=== PATIENT | male | born 1955 | race Caucasian/White ===

== ENCOUNTER 2022-08-17 19:11 | Emergency (ER) | payer OTHER ==
[2022-08-17 19:34] LABS: BASOPHILS # (AUTO) 0.1 10^3/uL (0.0-0.1); BASOPHILS % (AUTO) 1 % (0-10); EOSINOPHILS # (AUTO) 0.2 10^3/uL (0.0-0.3); EOSINOPHILS % (AUTO) 2 % (0-10); HEMATOCRIT 46 % (35-52); HEMOGLOBIN 14.9 g/dL (11.5-16.0); LYMPHOCYTES # (AUTO) 2.3 10^3/uL (1.0-4.0); LYMPHOCYTES % (AUTO) 25 % (12-44); MEAN CORPUSCULAR HEMOGLOBIN 29 pg (25-34); MEAN CORPUSCULAR HGB CONC 32 g/dL (32-36); MEAN CORPUSCULAR VOLUME 91 fL (80-99); MEAN PLATELET VOLUME 11.3 fL (9.0-12.2); MONOCYTES # (AUTO) 0.9 10^3/uL (0.0-1.0); MONOCYTES % (AUTO) 10 % (0-12); NEUTROPHILS % (AUTO) 63 % (42-75); PLATELET COUNT 251 10^3/uL (130-400); WHITE BLOOD COUNT 9.6 10^3/uL (4.3-11.0)
[2022-08-17 19:55] LABS: ALANINE AMINOTRANSFERASE 25 U/L (0-55); ALBUMIN 3.8 GM/DL (3.2-4.5); ALKALINE PHOSPHATASE 106 U/L (40-136); BILIRUBIN,TOTAL 0.7 MG/DL (0.1-1.0); BUN/CREATININE RATIO 14; CALCIUM 9.6 MG/DL (8.5-10.1); CARBON DIOXIDE 24 MMOL/L (21-32); CHLORIDE 108 MMOL/L (98-107); CREATININE SERUM 0.98 MG/DL (0.60-1.30); GFR ESTIMATED 91; GLUCOSE 156 MG/DL (70-105); POTASSIUM 3.7 MMOL/L (3.6-5.0); SODIUM 146 MMOL/L (135-145); TOTAL PROTEIN 7.1 GM/DL (6.4-8.2)
--- NOTE | 2022-08-17 19:56 | Diagnostic Imaging Report ---
PROCEDURE: CT head wo r/o stroke. TECHNIQUE: Multiple contiguous axial images were obtained through the brain without the use of intravenous contrast. Auto Exposure Controls were utilized during the CT exam to meet ALARA standards for radiation dose reduction. INDICATION: Facial drooping, numbness. COMPARISON: None available. FINDINGS: No intracranial hemorrhage. No intracranial mass, mass effect, midline shift, herniation, hydrocephalus, or extra-axial fluid collection. No CT evidence of an acute ischemic infarction. The orbits are unremarkable. The paranasal sinuses are clear. The calvarium and extracalvarial soft tissues are unremarkable. IMPRESSION: Unremarkable examination without acute intracranial abnormality. Should there remain high clinical concern for recent infarction, then further evaluation with MRI of the brain would be recommended. Dictated by: Dictated on workstation # [id number]
--- NOTE | 2022-08-17 19:58 | ED Neurological Problem ---
General Chief Complaint: Neuro-Stroke Like Symptoms Stated Complaint: STROKE SYMPTOMS Nursing Triage Note: Pt complaining of left arm and left facial numbness along with slurred speech that started around 1835 tonight. Source: patient, family Exam Limitations: no limitations History of Present Illness Date Seen by Provider: August 17, 2022 Time Seen by Provider: 19:13 Initial Comments 56-year-old male with past medical history of hypertension coming in due to concerns for stroke. At 6:30 PM his left face started drooping, left arm and face became numb, left arm became weak, and he started slurring his speech. He presented to the ER shortly after. He has had similar episodes over the past couple months, but always gets better within a few minutes. Last episode over a week ago. He has never had a stroke that he knows of, does not take blood thinners, no intracranial hemorrhage ever, no brain masses, no major surgery in the past 14 days, is not bleeding anywhere, and has never had any significant bleeding issues. He also has not hit his head at all recently. Allergies and Home Medications Allergies Coded Allergies: No Known Drug Allergies (Unverified , 08/17/22) Patient Home Medication List Home Medication List Reviewed: Yes Review of Systems Review of Systems Constitutional: No fever Eyes: No Symptoms Reported Respiratory: no symptoms reported Cardiovascular: no symptoms reported Gastrointestinal: no symptoms reported Genitourinary: no symptoms reported Musculoskeletal: no symptoms reported Psychiatric/Neurological: See HPI Past Pidzmuf-Yvwrfo-Fzcxov Hx Patient Social History Tobacco Use?: No Use of E-Cig and/or Vaping dev: No Substance use?: No Alcohol Use?: No Pt feels they are or have been: No Past Medical History Surgeries: Yes Orthopedic Physical Exam Vital Signs Vital Signs - First Documented 08/17/22 19:13 Temp 36.7 Pulse 124 Resp 16 B/P (MAP) 137/69 (91) Pulse Ox 95 O2 Delivery Room Air Capillary Refill : Less Than 3 Seconds Height, Weight, BMI Height: '" Weight: lbs. oz. kg; BMI Method: General Appearance: WD/WN, no apparent distress HEENT: PERRL/EOMI, pharynx normal Neck: non-tender, full range of motion, supple, normal inspection Respiratory: chest non-tender, lungs clear, normal breath sounds, no respiratory distress, no accessory muscle use Cardiovascular: regular rate, rhythm, no edema, no murmur Gastrointestinal: normal bowel sounds, non tender, soft; No distended, No guarding, No rebound Back: normal inspection, no CVA tenderness, no vertebral tenderness Extremities: non-tender, normal inspection, no pedal edema, no calf tenderness, normal capillary refill Neurologic/Psychiatric: alert, normal mood/affect, oriented x 3 Crainal Nerves: normal hearing, PERRL, abnormal speech, facial droop, facial paresthesias Coordination/Gait: normal gait; No ABN nose to finger (R); ABN nose to finger (L) Motor/Sensory: No pronator drift (R); pronator drift (L) Skin: normal color, warm/dry Stroke Onset of Symptoms Date of Onset of Symptoms: August 17, 2022 Time of Symptom Onset: 18:30 Onset of Symptoms: Yes NIH Stroke Scale Assessment Level of Consciousness: 0=Alert (0), Level of Consciousness-Questions: 0=Answers both month/age (0), LOC Commands: 0=Performs both tasks (0), Gaze: Normal (0), Visual Tyson: 0=No visual loss (0), Facial Movement (Facial Paresis): 2=Partial paralysis (2), Motor Function-Arms Right: 0=No drift (0), Motor Function-Arms Left: 1=Drift (1), Motor Function-Legs Right: 0=No drift (0), Motor Function-Legs Left: 0=No drift (0), Limb Ataxia: 1=Present in one limb (1), Sensory: 1=Mild to Moderate loss (1), Best Language: 0=No aphasia (0), Dysarthria: 1=Mild to moderate loss (1), Extinction & Inattention: 0=No abnormality (0), Total: 6 Stroke Thrombolytic Exclusion Age 18 or Over: Yes Acute intenal hemorrhage: No History of CVA: Yes Uncontrolled Coagulation Defec: No Intracranial Hemorrhage: No Severe Hypertension: No GI or Bleed: No Subarachnoid Hemorrhage: No Intracranial Neoplasm/Aneurysm: No Oral Anticoagulants: No Surgery or Trauma: No Puncture of Non-Compressible V: No Recent CPR: No Diabetic Hemorrhagic Retinopat: No Organ Biopsy: No Recent Obstetric Delivery: No Glucose: No Significant Hepatic Dysfunctio: No NIH Stoke Scale >22: No Bacterial Endocarditis: No Pericarditis: No Improving Symptoms: No Platelets: No TPA Contraindication: No Progress/Results/Core Measures Results/Orders Lab Results Laboratory Tests Test 08/17/22 19:20 08/17/22 19:30 08/17/22 20:06 Range/Units White Blood Count 9.6 4.3-11.0 10^3/uL Red Blood Count 5.08 3.80-5.11 10^6/uL Hemoglobin 14.9 11.5-16.0 g/dL Hematocrit 46 35-52 % Mean Corpuscular Volume 91 80-99 fL Mean Corpuscular Hemoglobin 29 25-34 pg Mean Corpuscular Hemoglobin Concent 32 32-36 g/dL Red Cell Distribution Width 12.7 10.0-14.5 % Platelet Count 251 130-400 10^3/uL Mean Platelet Volume 11.3 9.0-12.2 fL Immature Granulocyte % (Auto) 0 % Neutrophils (%) (Auto) 63 42-75 % Lymphocytes (%) (Auto) 25 12-44 % Monocytes (%) (Auto) 10 0-12 % Eosinophils (%) (Auto) 2 0-10 % Basophils (%) (Auto) 1 0-10 % Neutrophils # (Auto) 6.0 1.8-7.8 10^3/uL Lymphocytes # (Auto) 2.3 1.0-4.0 10^3/uL Monocytes # (Auto) 0.9 0.0-1.0 10^3/uL Eosinophils # (Auto) 0.2 0.0-0.3 10^3/uL Basophils # (Auto) 0.1 0.0-0.1 10^3/uL Immature Granulocyte # (Auto) 0.0 0.0-0.1 10^3/uL Prothrombin Time 14.1 12.2-14.7 SEC INR Comment 1.0 0.8-1.4 Activated Partial Thromboplast Time 28 24-35 SEC D-Dimer 1.71 H 0.00-0.49 UG/ML Sodium Level 146 H 135-145 MMOL/L Potassium Level 3.7 3.6-5.0 MMOL/L Chloride Level 108 H 98-107 MMOL/L Carbon Dioxide Level 24 21-32 MMOL/L Anion Gap 14 5-14 MMOL/L Blood Urea Nitrogen 14 7-18 MG/DL Creatinine 0.98 0.60-1.30 MG/DL Estimat Glomerular Filtration Rate 91 BUN/Creatinine Ratio 14 Glucose Level 156 H 70-105 MG/DL Calcium Level 9.6 8.5-10.1 MG/DL Corrected Calcium 9.8 8.5-10.1 MG/DL Total Bilirubin 0.7 0.1-1.0 MG/DL Aspartate Amino Transf (AST/SGOT) 26 5-34 U/L Alanine Aminotransferase (ALT/SGPT) 25 0-55 U/L Alkaline Phosphatase 106 40-136 U/L Troponin I < 0.30 <0.30 NG/ML Total Protein 7.1 6.4-8.2 GM/DL Albumin 3.8 3.2-4.5 GM/DL Glucometer 161 H 70-110 MG/DL Urine Color YELLOW Urine Clarity CLEAR Urine pH 6.0 5-9 Urine Specific [place] 1.010 L 1.016-1.022 Urine Protein NEGATIVE NEGATIVE Urine Glucose (UA) NEGATIVE NEGATIVE Urine Ketones NEGATIVE NEGATIVE Urine Nitrite POSITIVE H NEGATIVE Urine Bilirubin NEGATIVE NEGATIVE Urine Urobilinogen 0.2 < = 1.0 MG/DL Urine Leukocyte Esterase TRACE H NEGATIVE Urine RBC (Auto) NEGATIVE NEGATIVE Urine RBC NONE /HPF Urine WBC 10-25 H /HPF Urine Squamous Epithelial Cells 2-5 /HPF Urine Crystals NONE /LPF Urine Bacteria MODERATE H /HPF Urine Casts NONE /LPF Urine Mucus SMALL H /LPF Urine Culture Indicated YES My Orders Orders - SARMAD BARROS MD Ct Head Wo-R/O Stroke (08/17/22 19:20) Cbc With Automated Diff (08/17/22 19:) Protime With Inr (08/17/22 19:27) Partial Thromboplastin Time (08/17/22 19:27) Comprehensive Metabolic Panel (08/17/22 19:27) Fibrin Degradation Products (08/17/22 19:27) Troponin I Fs (08/17/22 19:27) Ua Culture If Indicated (08/17/22 19:27) Chest 1 View Ap/Pa Only (08/17/22 19:27) Catheter(Urinary) Insert & Ass 03,15 (08/17/22 19:27) Ekg Tracing (08/17/22 19:27) Accucheck Stat ONCE (08/17/22 19:27) Ed Iv/Invasive Line Start (08/17/22 19:27) Ed Iv/Invasive Line Start (08/17/22 19:27) Vital Signs Stroke Patient Q15M (08/17/22 19:27) O2 (08/17/22 19:27) Intake & Output 06,14,22 (08/17/22 19:27) Monitor-Rhythm Ecg Trace Only (08/17/22 19:27) Dysphagia Screening Tool Q10MX1 (08/17/22 19:27) Post Thrombolytic Adminstratio (08/17/22 19:27) Ct Angio Head/Neck (08/17/22 19:27) Iohexol Injection (Omnipaque 350 Mg/Ml 1 (08/17/22 20:00) Received Contrast (Hold Metformin- Contr (08/17/22 20:00) Ns (Ivpb) (Sodium Chloride 0.9% Ivpb Bag (08/17/22 20:00) Vital Signs Stroke Patient Q15M (08/17/22 20:10) Monitor-Rhythm Ecg Trace Only (08/17/22 20:10) Dysphagia Screening Tool Q10MX1 (08/17/22 20:10) Tenecteplase (Tnkase) (08/17/22 20:15) Post Thrombolytic Adminstratio (08/17/22 20:10) Urine Culture (08/17/22 20:06) Medications Given in ED Current Medications Medications Dose Ordered Sig/Ashley Route Start Time Stop Time Status Last Admin Dose Admin Iohexol 70 ml ONCE ONCE IV 08/17/22 20:00 08/17/22 20:01 DC 08/17/22 20:10 70 ML Sodium Chloride 100 ml ONCE ONCE IV 08/17/22 20:00 08/17/22 20:01 DC 08/17/22 20:10 100 ML Tenecteplase 25 mg ONCE ONCE IV 08/17/22 20:15 08/17/22 20:16 DC 08/17/22 20:21 25 MG Vital Signs/I&O 08/17/22 08/17/22 08/17/22 08/17/22 19:13 20:21 20:25 20:51 Temp 36.7 Pulse 124 104 102 100 Resp 16 18 20 B/P (MAP) 137/69 (91) 142/76 142/76 135/72 Pulse Ox 95 94 96 O2 Delivery Room Air Room Air Blood Pressure Mean: 91 FSBG Bedside Testing Finger Stick Blood Glucose: 161 Progress Progress Note : Progress Note 56-year-old male with above history coming in due to strokelike symptoms. ABCs were intact and vitals were stable on presentation. Physical exam with left arm weakness, left arm and face numbness, left-sided facial droop, ataxia with his left upper extremity, and slurring of speech. NIH is 6. It does sound like he has had multiple TIAs over the past couple months. The patient was taken immediately to the CT scanner and on my interpretation has no obvious intracranial hemorrhage. CTA head and neck also obtained which were negative. Glucose around 160, normal creatinine, unremarkable CBC, negative troponin. EKG with no acute ischemic changes and he is in sinus rhythm. I contacted Dr. Voss, [facility] stroke neurologist. She recommended giving tenecteplase. I did consent the patient and discussed with him the risk and benefits of this. He opted to go forward with the treatment. then will accept him for transport to their intensive care unit. Initial ECG Impression Date: August 17, 2022 Initial ECG Impression Time: 19:45 Initial ECG Rate: 103 Initial ECG Rhythm: S.Tach Comment Narrow QRS, normal axis, no significant ST changes or T wave abnormalities Diagnostic Imaging Diagonstic Imaging: Xray (chest), CT (CTA head and neck) Comments [facility]. [place], [place] NAME: GISELLE GUERRA [facility] REC#: [id number] PT STATUS: REG ER : 10/26/1965 PHYSICIAN: SARMAD BARROS MD ADMIT DATE: 08/17/22/ER FS Signed Date of Exam:08/17/22 CT ANGIO HEAD/NECK PROCEDURE: CT angiography of the head and CT angiography of the neck with and without contrast. TECHNIQUE: Contiguous noncontrast images were obtained from the skull base through the vertex. After intravenous contrast administration, helical CT angiography of the neck was performed. Source data was reformatted into 3D MIP projections. Delayed post contrast acquisition was also obtained. Auto Exposure Controls were utilized during the CT exam to meet ALARA standards for radiation dose reduction. INDICATION: Stroke, left-sided facial numbness, slurred speech COMPARISON: Imaging from the same date FINDINGS: No midline shift, obstructive hydrocephalus, uncal herniation, or significant extra-axial fluid collection. No enhancing intracranial mass lesion. No suspicious dural enhancement. The orbits are unremarkable. The muscles of mastication are unremarkable. The parapharyngeal fat is symmetric and well-maintained. The salivary glands are unremarkable. The thyroid gland is unremarkable. No significant adenopathy within the neck. No apical pneumothorax. A three-vessel aortic arch is present. 50% stenosis is noted involving the right carotid bulb/proximal right internal carotid artery based upon NASCET criteria. The distal right internal carotid artery is tortuous. Approximately 50% stenosis involving the left carotid bulb/proximal internal carotid artery is identified. The large arterial structures within the head and neck are otherwise unremarkable. The large dural venous sinuses are patent. Postsurgical changes are noted within the cervical spine with anterior plate and screw fixation of C4-C7. Significant scattered degenerative changes are identified within the cervical spine. IMPRESSION: Approximately 50% stenosis involving the bilateral carotid bulb/proximal internal carotid arteries based upon NASCET criteria. No acute intracranial abnormality. Postsurgical and degenerative changes within the spine. Dictated by: Dictated on workstation # [id number] Dict: 08/17/221954 Trans: 08/17/222024 [place] [id number] Interpreted by: ISAEL MERCHANT MD Electronically signed by: ISAEL MERCHANT MD 08/17/222024 [facility] [place], [place] NAME: GISELLE GUERRA [facility] REC#: [id number] PT STATUS: REG ER : 10/26/1965 PHYSICIAN: SARMAD BARROS MD ADMIT DATE: 08/17/22/ER FS Draft Date of Exam:08/17/22 CHEST 1 VIEW AP/PA ONLY EXAMINATION: Chest 1 view HISTORY: stroke COMPARISON: None available. FINDINGS: Heart size and pulmonary vasculature are normal. The lungs are clear without consolidation, pleural effusion, or pneumothorax. Degenerative changes of the thoracic spine. Osseous structures are otherwise intact. IMPRESSION: 1. No acute radiographic abnormality in the chest. Dictated on workstation # [id number] Dict: 08/17/221955 Trans: 08/17/222006 [place] [id number] Interpreted by: RAKESH KOHLI DO Electronically signed by: Critical Care Note Critical Care Start Time: 19:13 Stop Time: 20:58 Total Time (minutes) 37 Progress The patient had acute ischemic stroke requiring tenecteplase. He was at significant risk for bleeding. Patient was transferred to another facility to the intensive care unit. All time billed for critical care was separate from procedures. Departure Impression Primary Impression: Acute stroke due to ischemia Disposition: XFER SHT-TRM HOSP Condition: Stable Admissions Decision to Admit/Date: August 17, 2022 Time/Decision to Admit Time: 19:55 Transfer Transfer Reason: Exceeds level of care (may need thrombectomy) Time Spoke to Accepting Phy: 20:00 Transfer Progress Notes Accepted by stroke neurologist at [facility]. Current ambulance is out of [facility] and will not have ground transport for many hours. Patient needs to be in an ICU sooner, so will fly via helicopter due to necessity Transfer Facility: [facility] Method of Transfer: SARMAD Solis MD August 17, 2022 19:57
[2022-08-17] MEDS ORDERED: NS 100 ML (IVPB) BAG IV ONE (20:00)
[2022-08-17] MEDS ORDERED: HOLD METFORMIN - RECEIVED CONTRAST 20 ML VIAL IV SCH (20:00)
[2022-08-17] MEDS ORDERED: IOHEXOL 350 MG/ML 100 ML (OMNIPAQUE 350) VIAL IV ONE (20:00)
--- NOTE | 2022-08-17 20:07 | Diagnostic Imaging Report ---
EXAMINATION: Chest 1 view HISTORY: stroke COMPARISON: None available. FINDINGS: Heart size and pulmonary vasculature are normal. The lungs are clear without consolidation, pleural effusion, or pneumothorax. Degenerative changes of the thoracic spine. Osseous structures are otherwise intact. IMPRESSION: 1. No acute radiographic abnormality in the chest. Dictated by: Dictated on workstation # [id number]
[2022-08-17 20:11] LABS: BILIRUBIN,URINE NEGATIVE (NEGATIVE); CLARITY,URINE CLEAR; COLOR,URINE YELLOW; GLUCOSE, URINE (UA) NEGATIVE (NEGATIVE); KETONES,URINE NEGATIVE (NEGATIVE); LEUKOCYTE ESTERASE ,URINE TRACE (NEGATIVE); NITRITE,URINE POSITIVE (NEGATIVE); PROTEIN,URINE NEGATIVE (NEGATIVE)
--- NOTE | 2022-08-17 20:13 | Diagnostic Imaging Report ---
PROCEDURE: CT angiography of the head and CT angiography of the neck with and without contrast. TECHNIQUE: Contiguous noncontrast images were obtained from the skull base through the vertex. After intravenous contrast administration, helical CT angiography of the neck was performed. Source data was reformatted into 3D MIP projections. Delayed post contrast acquisition was also obtained. Auto Exposure Controls were utilized during the CT exam to meet ALARA standards for radiation dose reduction. INDICATION: Stroke, left-sided facial numbness, slurred speech COMPARISON: Imaging from the same date FINDINGS: No midline shift, obstructive hydrocephalus, uncal herniation, or significant extra-axial fluid collection. No enhancing intracranial mass lesion. No suspicious dural enhancement. The orbits are unremarkable. The muscles of mastication are unremarkable. The parapharyngeal fat is symmetric and well-maintained. The salivary glands are unremarkable. The thyroid gland is unremarkable. No significant adenopathy within the neck. No apical pneumothorax. A three-vessel aortic arch is present. 50% stenosis is noted involving the right carotid bulb/proximal right internal carotid artery based upon NASCET criteria. The distal right internal carotid artery is tortuous. Approximately 50% stenosis involving the left carotid bulb/proximal internal carotid artery is identified. The large arterial structures within the head and neck are otherwise unremarkable. The large dural venous sinuses are patent. Postsurgical changes are noted within the cervical spine with anterior plate and screw fixation of C4-C7. Significant scattered degenerative changes are identified within the cervical spine. IMPRESSION: Approximately 50% stenosis involving the bilateral carotid bulb/proximal internal carotid arteries based upon NASCET criteria. No acute intracranial abnormality. Postsurgical and degenerative changes within the spine. Dictated by: Dictated on workstation # [id number]
[2022-08-17] MEDS ORDERED: TENECTEPLASE 50 MG VIAL IV ONE (20:15)
[2022-08-17 20:17] LABS: FIBRIN DEGRADATION PRODUCTS 1.71 UG/ML (0.00-0.49); PROTHROMBIN TIME PATIENT 14.1 SEC (12.2-14.7)
[2022-08-17 20:18] LABS: BACTERIA,URINE MODERATE /HPF
[2022-08-17 20:25] VITALS: BP 142/76
[2022-08-17 20:51] VITALS: BP 135/72
== END 2022-08-17 21:05 | disposition short-term general hospital (02) ==
LOC: ER FS 19:13 → EDBD 19:13 → EDSEX 19:13 → ER FS 21:05
DX: I63.9 Cerebral infarction, unspecified (principal); G81.94 Hemiplegia, unspecified affecting left nondominant side; R29.810 Facial weakness; R47.81 Slurred speech; R27.0 Ataxia, unspecified; R29.706 NIHSS score 6; Z28.310 Unvaccinated for COVID-19
CPT/HCPCS: 36415; 70450; 70496; 70498; 71045; 80053; 81000; 82947; 84484; 85025; 85379; 85610; 85730; 87088; 92977; 93005; 93041; 99291; Q9967

== ENCOUNTER 2022-11-10 08:21 | Emergency (ER) | payer OTHER ==
[~2022-11-10] VITALS: Ht 187 cm; Wt 132.0 kg
--- NOTE | 2022-11-10 09:00 | ED Neurological Problem ---
General Chief Complaint: General Problems/Pain Stated Complaint: LT ARM NUMBNESS; BLURRY VISION Nursing Triage Note: Patient has presented to ER with a few complaints. He reports that after he got to work this morning he noticed this numbness feeling in his left shoulder with some extension into her left arm. It seems to work fine but feels a bit numb. He reports that the more he thought about it the more he worried about it, since he has a stroke in the past. While at work he noticed that he feels a little shakey, and he some pain in his lower left chest - along the lower left rib area - that pain has gone a way upon arrival to the ER. He felt that he should come in and be checked out. Source: patient, old records Exam Limitations: no limitations History of Present Illness Date Seen by Provider: Nov 10, 2022 Time Seen by Provider: 08:33 Initial Comments This 67-year-old gentleman with prior history of CVA presents to the emergency room via private vehicle with complaints of minor numbness in his left fourth and fifth finger, a brief episode of disruption in the left peripheral vision, a "dumbness" in the musculature of the left upper arm, and a brief vague discomfort in his left chest. He felt well when he awoke around 0500. He then noted the symptoms approximately 0715. Symptoms resolved by the time he presented to the emergency room. He also reports feeling generally shaky and a bit dysphoric. He describes no facial drooping, extremity weakness, or speech problems. He had a stroke in July of this year. He was experiencing left-sided deficits and presented to this emergency room. His NIH score was 6. He received tenecteplase and was transferred to [facility] where he had a thorough evaluation including MRI studies and a cardiac evaluation. He reports no definite cause for the stroke was determined and cardiac work-up was unremarkable. He presently takes aspirin after completing 3 weeks of dual antiplatelet therapy with Plavix. He also takes atorvastatin but reports it causes him problems with muscle aching. He reports that these symptoms can be convoluted due to his history of cervical spine disease with history of corpectomy. He also has chronic problems with the left shoulder due to a prior shoulder injury. The shoulder sometimes feels loose and sore. He has chronic residual deficits from his prior stroke that include a slight numbness of the left upper lip and the left tongue. He recently mowed a large section of grass that caused some upper back pain which she is still experiencing. He has lumbar spondylolisthesis which causes neuropathy. He has also been treated for UTI in recent months. He reports history of prediabetes and wonders about his blood suger. His primary care provider is Dr. Jay. His pharmacy is [facility] in [place]. Review of his chart reveals CTA performed at the time of his prior stroke presentation August 17, 2022 with approximately 50% stenosis of the internal carotids bilaterally. He reports loop recorder was previously recommended. He is considering pursuing the loop recorder. Allergies and Home Medications Allergies Coded Allergies: No Known Drug Allergies (Unverified , 08/17/22) Patient Home Medication List Home Medication List Reviewed: Yes Review of Systems Review of Systems Constitutional: see HPI Eyes: See HPI Ears, Nose, Mouth, Throat: no symptoms reported Respiratory: no symptoms reported Cardiovascular: no symptoms reported Gastrointestinal: no symptoms reported Genitourinary: no symptoms reported Musculoskeletal: no symptoms reported Skin: no symptoms reported Psychiatric/Neurological: See HPI Endocrine: See HPI Hematologic/Lymphatic: No Symptoms Reported Past Mubzarn-Bxbrks-Geqnwq Hx Patient Social History Tobacco Use?: No Use of E-Cig and/or Vaping dev: No Substance use?: No Alcohol Use?: No Past Medical History Surgeries: Yes Gallbladder, Orthopedic (c-spin corpectomy, right rotator cuff) Respiratory: No Cardiac: Yes Hypertension, Peripheral Vascular (bilateral carotid stenosis) Neurological: Yes Neuropathy, Stroke Genitourinary: No Gastrointestinal: No Musculoskeletal: Yes (lumbar spondylolisthesis, cervical spine disease, chronic left knee pain) Chronic Back Pain, Gout Endocrine: Yes (prediabetes) HEENT: No Cancer: No Psychosocial: No Physical Exam Vital Signs Vital Signs - First Documented 11/10/22 08:36 Temp 36.8 Pulse 87 Resp 16 B/P (MAP) 151/87 (108) Pulse Ox 96 O2 Delivery Room Air Capillary Refill : Height, Weight, BMI Height: '" Weight: lbs. oz. kg; 37.00 BMI Method: General Appearance: WD/WN, no apparent distress HEENT: PERRL/EOMI, normal ENT inspection, pharynx normal Neck: normal inspection Respiratory: lungs clear, normal breath sounds, no respiratory distress Cardiovascular: regular rate, rhythm, no edema, no murmur Gastrointestinal: non tender, soft Extremities: normal inspection, no pedal edema Neurologic/Psychiatric: toggle press folder and feeder II-XII nml as tested (slight chronic numbness of left lip and tongue at baseline), no motor/sensory deficits, alert, normal mood/affect, oriented x 3 Crainal Nerves: normal hearing, normal speech, PERRL Coordination/Gait: normal finger to nose (normal heel to wayne) Motor/Sensory: no motor deficit, no sensory deficit (baseline lip and tongue numbess) Skin: normal color, warm/dry Stroke Stroke Thrombolytic Exclusion Age 18 or Over: Yes Acute intenal hemorrhage: No History of CVA: Yes Uncontrolled Coagulation Defec: No Intracranial Hemorrhage: No Severe Hypertension: No GI or Bleed: No Subarachnoid Hemorrhage: No Intracranial Neoplasm/Aneurysm: No Oral Anticoagulants: No Surgery or Trauma: No Puncture of Non-Compressible V: No Recent CPR: No Diabetic Hemorrhagic Retinopat: No Organ Biopsy: No Recent Obstetric Delivery: No Glucose: No Significant Hepatic Dysfunctio: No NIH Stoke Scale >22: No Bacterial Endocarditis: No Pericarditis: No Improving Symptoms: No Platelets: No Progress/Results/Core Measures Results/Orders Lab Results Laboratory Tests Test 11/10/22 08:30 11/10/22 09:03 11/10/22 11:30 Range/Units White Blood Count 7.0 4.3-11.0 10^3/uL Red Blood Count 5.24 4.30-5.52 10^6/uL Hemoglobin 15.1 13.3-17.7 g/dL Hematocrit 47 40-54 % Mean Corpuscular Volume 91 80-99 fL Mean Corpuscular Hemoglobin 29 25-34 pg Mean Corpuscular Hemoglobin Concent 32 32-36 g/dL Red Cell Distribution Width 13.0 10.0-14.5 % Platelet Count 231 130-400 10^3/uL Mean Platelet Volume 11.5 9.0-12.2 fL Immature Granulocyte % (Auto) 0 % Neutrophils (%) (Auto) 60 42-75 % Lymphocytes (%) (Auto) 24 12-44 % Monocytes (%) (Auto) 11 0-12 % Eosinophils (%) (Auto) 4 0-10 % Basophils (%) (Auto) 1 0-10 % Neutrophils # (Auto) 4.2 1.8-7.8 X 10^3 Lymphocytes # (Auto) 1.7 1.0-4.0 X 10^3 Monocytes # (Auto) 0.8 0.0-1.0 X 10^3 Eosinophils # (Auto) 0.3 0.0-0.3 10^3/uL Basophils # (Auto) 0.0 0.0-0.1 10^3/uL Immature Granulocyte # (Auto) 0.0 0.0-0.1 10^3/uL Sodium Level 143 135-145 MMOL/L Potassium Level 3.5 L 3.6-5.0 MMOL/L Chloride Level 104 98-107 MMOL/L Carbon Dioxide Level 27 21-32 MMOL/L Anion Gap 12 5-14 MMOL/L Blood Urea Nitrogen 14 7-18 MG/DL Creatinine 0.95 0.60-1.30 MG/DL Estimat Glomerular Filtration Rate 88 BUN/Creatinine Ratio 15 Glucose Level 172 H 70-105 MG/DL Calcium Level 9.5 8.5-10.1 MG/DL Corrected Calcium 9.6 8.5-10.1 MG/DL Magnesium Level 2.0 1.6-2.4 MG/DL Total Bilirubin 0.7 0.1-1.0 MG/DL Aspartate Amino Transf (AST/SGOT) 24 5-34 U/L Alanine Aminotransferase (ALT/SGPT) 25 0-55 U/L Alkaline Phosphatase 138 H 40-136 U/L Troponin I < 0.30 <0.30 NG/ML Total Protein 7.0 6.4-8.2 GM/DL Albumin 3.9 3.2-4.5 GM/DL Urine Color YELLOW Urine Clarity CLEAR Urine pH 6.0 5-9 Urine Specific Thurmond 1.025 H 1.016-1.022 Urine Protein NEGATIVE NEGATIVE Urine Glucose (UA) NEGATIVE NEGATIVE Urine Ketones NEGATIVE NEGATIVE Urine Nitrite NEGATIVE NEGATIVE Urine Bilirubin NEGATIVE NEGATIVE Urine Urobilinogen 0.2 < = 1.0 MG/DL Urine Leukocyte Esterase NEGATIVE NEGATIVE Urine RBC (Auto) NEGATIVE NEGATIVE Urine RBC NONE /HPF Urine WBC NONE /HPF Urine Squamous Epithelial Cells 5-10 /HPF Urine Crystals NONE /LPF Urine Bacteria NEGATIVE /HPF Urine Casts NONE /LPF Urine Mucus SMALL H /LPF Urine Culture Indicated NO My Orders Orders - RACHEL LOO MD Cbc With Automated Diff (11/10/22 08:56) Comprehensive Metabolic Panel (11/10/22 08:56) Magnesium (11/10/22 08:56) Ua Culture If Indicated (11/10/22 08:56) Troponin I Fs (11/10/22 08:56) Ekg Tracing (11/10/22 08:56) Monitor-Rhythm Ecg Trace Only (11/10/22 08:56) Creatine Kinase (11/10/22 09:00) Iohexol Injection (Omnipaque 350 Mg/Ml 1 (11/10/22 09:45) Received Contrast (Hold Metformin- Contr (11/10/22 09:45) Ns (Ivpb) 100 Ml (Sodium Chloride 0.9% 1 (11/10/22 09:45) Ct Head/Cervical Spine Wo (11/10/22 09:33) Troponin I Fs (11/10/22 11:30) Clopidogrel Tablet (Clopidogrel Tablet) (11/10/22 11:30) Clopidogrel Tablet (Clopidogrel Tablet) (11/10/22 11:24) Medications Given in ED Current Medications Medications Dose Ordered Sig/Ashley Route Start Time Stop Time Status Last Admin Dose Admin Clopidogrel Bisulfate 300 mg ONCE ONCE PO 11/10/22 11:30 11/10/22 11:31 DC 11/10/22 11:30 300 MG Vital Signs/I&O 11/10/22 11/10/22 11/10/22 08:36 09:48 11:22 Temp 36.8 Pulse 87 69 69 Resp 16 14 16 B/P (MAP) 151/87 (108) 159/86 (110) 175/86 Pulse Ox 96 97 97 O2 Delivery Room Air Room Air Room Air Blood Pressure Mean: 108 Progress Progress Note : Time: 11:29 Progress Note Patient was interviewed and examined at 0833. His symptoms of concern including chest discomfort, left peripheral visual disturbance, numbness in the left fourth and fifth finger, and the "dumbness" of the posterior left upper arm had all resolved by the time of my interview and exam. No focal neurologic deficits were identified on exam. Work-up was pursued including CBC, CMP, magnesium, troponin, urinalysis, EKG, and CT imaging of the head and cervical spine. All studies were viewed, reviewed, and interpreted by me as unremarkable except the CT imaging. On my interpretation of CT imaging there were no acute abnormalities of the head. Cervical spine demonstrated significant chronic disease and postoperative changes. Chronic disease included cervical spinal stenosis and multiple levels of neuroforaminal stenosis as well as bone spurring. Radiologist's report was also reviewed and noted as below. Also included below is the CT angiogram from July which was reviewed by me. Although patient's symptoms in the left upper extremity could be explained by his cer vical spine disease, I do have concerns about the visual disturbance he had that accompanied those symptoms. I discussed this issue with Dr. King, stroke neurologist at [facility]. She reviewed his [facility] file. We discussed the carotid stenosis noted on the angiogram from July. In light of the carotid stenosis, his waxing and waning intermittent symptoms, and the eye symptoms that would not be explained by cervical spine disease, she discerned it would be best to repeat imaging of the vasculature with CT angiogram as well as MRI. MRI is not available at this stand-alone ER. We discussed the option of transferring to [place] for imaging versus directly transferring to [facility]. Although [place] is closer, there would be risk of delaying treatment if he then required transfer to a comprehensive stroke center after review of imaging studies. Also, it would be best for him to be evaluated directly by stroke neurologist and have his imaging performed with the best possible equipment and assessed by neuroradiologist and stroke neurologist. Ultimately, it was determined it is most appropriate for him to be transferred directly to [facility] to provide the best evaluation for his circumstances and to prevent delay of care. Patient is agreeable to transfer. He will be transferred by [facility]. Patient's chest pain is being further evaluated by a repeat troponin. Patient states he has not had any stress testing or coronary angiography in the past which prompted the repeat troponin. Both the repeat troponin and the CK ordered to evaluate possible myopathy related to atorvastatin were pending at this time. The CK is a send out lab and will not be available during this ER stay. Patient is stable at this time. He has been noted to be hypertensive with a current blo od pressure of 164/83. This hypertension would add to the concern that he may have experienced a TIA today. Per Dr. King's recommendation, Plavix 300 mg is being added to his treatment today. Dysphagia screening with water swallow was performed prior to receiving the Plavix. Dr. King recommended deferring further imaging to [facility]. Necessity for transfer to [facility] is based on his need for evaluation at a comprehensive stroke center and need for continuity of care. Patient was treated for his stroke at [facility] in July. There is no metropolitan area closer with a comprehensive stroke center which makes [facility] the most appropriate receiving facility. Patient was not a thrombolytic candidate at the time of his ER stay as there were no measurable focal neurologic deficits. Initial ECG Impression Date: Nov 10, 2022 Initial ECG Impression Time: 08:26 Initial ECG Rate: 92 Initial ECG Rhythm: Normal Sinus Comment Sinus rhythm with no ST elevation or depression. First-degree block with IN interval of 214 ms. No axis deviation. Diagnostic Imaging Diagonstic Imaging: CT Plain Films/CT/US/NM/MRI: c-spine, head Comments NAME: GISELLE GUERRA [facility] REC#: [id number] PT STATUS: REG ER : 1955 PHYSICIAN: RACHEL LOO MD ADMIT DATE: 11/10/22/ER FS Draft Date of Exam:11/10/22 CT HEAD/CERVICAL SPINE WO Clinical indications: Patient has numbness feeling involving the left shoulder with some extension the left forearm. Patient's history of stroke. EXAM: Exam: Head CT without IV contrast with sagittal and coronal reformations. Axial CT scan of the cervical spine with sagittal and coronal reformations. Auto Exposure Controls were utilized during the CT exam to meet ALARA standards for radiation dose reduction. Comparison: CT angiogram of head/neck dated 08/17/2022. Findings: Head CT: There is no evidence of acute cerebral infarct, intracranial hemorrhage, or gross mass effect. The brain parenchymal volume appears appropriate for patient's age. There is normal bonilla-white matter distinction. There is no significant midline shift or herniation. There is no evidence of hydrocephalus. The basal cisterns are unremarkable. The skull, extracranial soft tissue, and orbits are unremarkable. The paranasal sinuses are unremarkable. Temporal bones show no significant abnormality. Cervical spine: There is no acute cervical spine fracture or dislocation. Straightening of the cervical spine posture C4 through C7 anterior cervical discectomy fusion. There is solid bony bridging/fusion seen from the C4-C6 level. There is no significant bony bridging/fusion seen at C6-C7 level and may be related to pseudoarthrosis. There is no hardware fracture. There is no osteolysis. There are cervical spine vertebral body spurs and facet arthropathy. C1-C2: There are hypertrophic spurs involving the left odontoid interval anteriorly. There is no significant central canal narrowing. C2-C3: There is grade 1 anterolisthesis C2 on C3. There is left-sided uncinate spur and bilateral facet arthropathy. There is moderate left neural foramen narrowing and mild right neural foramen narrowing. There is no significant bony central canal narrowing. C3-C4: There is moderate left facet arthropathy/hypertrophy and mild right facet arthropathy. There is moderate left neural foramen narrowing and no significant right neural foramen narrowing. There is no significant central canal stenosis. C4-C5: There is left paracentral vertebral body bony prominence which causes mild central canal narrowing. There is moderate right neural foramen narrowing and no significant left neural foramen narrowing. C5-C6: There is mild bilateral neural foramen narrowing due to uncinate spurs. There is no significant bony central canal narrowing. C6-C7: There are bilateral uncinate spurs and posterior vertebral body spurs. There is at least mild bony central canal narrowing. There is moderate left neural foramen narrowing and severe right neural foramen narrowing. There is at least mild to moderate central canal narrowing. C7-T1: There is no significant bony central canal or neural foramen narrowing. IMPRESSION: 1: There is no acute cervical spine fracture or dislocation. 2: There is C4-C7 ACDF. There is no significant bony bridging/fusion seen at C6-C7 level this may be related to pseudoarthrosis. 3: There is cervical spine degenerative disease, as described above. Dictated on workstation # [id number] Dict: 11/10/22 0953 Trans: 11/10/22 1029 [facility] [employer] [facility] [id number] Interpreted by: MERCEDES CORDOBA MD Diagonstic Imaging: CT Plain Films/CT/US/NM/MRI: other (CT angiogram head and neck from August 17, 2022) Comments NAME: GISELLE GUERRA [facility] REC#: [id number] PT STATUS: REG ER : 10/26/1965 PHYSICIAN: SARMAD BARROS MD ADMIT DATE: 08/17/22/ER FS Signed Date of Exam:08/17/22 CT ANGIO HEAD/NECK PROCEDURE: CT angiography of the head and CT angiography of the neck with and without contrast. TECHNIQUE: Contiguous noncontrast images were obtained from the skull base through the vertex. After intravenous contrast administration, helical CT angiography of the neck was performed. Source data was reformatted into 3D MIP projections. Delayed post contrast acquisition was also obtained. Auto Exposure Controls were utilized during the CT exam to meet ALARA standards for radiation dose reduction. INDICATION: Stroke, left-sided facial numbness, slurred speech COMPARISON: Imaging from the same date FINDINGS: No midline shift, obstructive hydrocephalus, uncal herniation, or significant extra-axial fluid collection. No enhancing intracranial mass lesion. No suspicious dural enhancement. The orbits are unremarkable. The muscles of mastication are unremarkable. The parapharyngeal fat is symmetric and well-maintained. The salivary glands are unremarkable. The thyroid gland is unremarkable. No significant adenopathy within the neck. No apical pneumothorax. A three-vessel aortic arch is present. 50% stenosis is noted involving the right carotid bulb/proximal right internal carotid artery based upon NASCET criteria. The distal right internal carotid artery is tortuous. Approximately 50% stenosis involving the left carotid bulb/proximal internal carotid artery is identified. The large arterial structures within the head and neck are otherwise unremarkable. The large dural venous sinuses are patent. Postsurgical changes are noted within the cervical spine with anterior plate and screw fixation of C4-C7. Significant scattered degenerative changes are identified within the cervical spine. IMPRESSION: Approximately 50% stenosis involving the bilateral carotid bulb/proximal internal carotid arteries based upon NASCET criteria. No acute intracranial abnormality. Postsurgical and degenerative changes within the spine. Dictated by: Dictated on workstation # [id number] Dict: 08/17/221954 Trans: 08/17/222024 [facility] [id number] Interpreted by: ISAEL MERCHANT MD Electronically signed by: ISAEL MERCHANT MD 08/17/222024 Departure Impression Primary Impression: Left upper extremity numbness Additional Impressions: Visual disturbance History of CVA (cerebrovascular accident) Bilateral carotid artery stenosis Cervical spinal stenosis Neuroforaminal stenosis of cervical spine Disposition: XF [facility]-TRM HOSP Condition: Stable Transfer Transfer Reason: Exceeds level of care Time Spoke to Accepting Phy: 11:[address] King, stroke neurologist at [facility] Transfer Facility: [facility] Method of Transfer: EMS Departure-Patient Inst. Referrals: GERARDO JAY MD (PCP/Family) Primary Care Physician Copy Copies To 1: SELF,RACHEL TRAN MD, MD Nov 10, 2022 08:59
[2022-11-10 09:19] LABS: BACTERIA,URINE NEGATIVE /HPF; BILIRUBIN,URINE NEGATIVE (NEGATIVE); CLARITY,URINE CLEAR; COLOR,URINE YELLOW; GLUCOSE, URINE (UA) NEGATIVE (NEGATIVE); KETONES,URINE NEGATIVE (NEGATIVE); LEUKOCYTE ESTERASE ,URINE NEGATIVE (NEGATIVE); NITRITE,URINE NEGATIVE (NEGATIVE); PROTEIN,URINE NEGATIVE (NEGATIVE)
[2022-11-10 09:20] LABS: HEMATOCRIT 47 % (40-54); HEMOGLOBIN 15.1 g/dL (13.3-17.7); MEAN CORPUSCULAR HEMOGLOBIN 29 pg (25-34); MEAN CORPUSCULAR HGB CONC 32 g/dL (32-36); MEAN CORPUSCULAR VOLUME 91 fL (80-99)
[2022-11-10 09:21] LABS: BASOPHILS % (AUTO) 1 % (0-10); EOSINOPHILS # (AUTO) 0.3 10^3/uL (0.0-0.3); EOSINOPHILS % (AUTO) 4 % (0-10); LYMPHOCYTES # (AUTO) 1.7 X 10^3 (1.0-4.0); LYMPHOCYTES % (AUTO) 24 % (12-44); MEAN PLATELET VOLUME 11.5 fL (9.0-12.2); MONOCYTES # (AUTO) 0.8 X 10^3 (0.0-1.0); MONOCYTES % (AUTO) 11 % (0-12); NEUTROPHILS # (AUTO) 4.2 X 10^3 (1.8-7.8); NEUTROPHILS % (AUTO) 60 % (42-75); PLATELET COUNT 231 10^3/uL (130-400)
[2022-11-10 09:23] LABS: ALANINE AMINOTRANSFERASE 25 U/L (0-55); ALKALINE PHOSPHATASE 138 U/L (40-136); BILIRUBIN,TOTAL 0.7 MG/DL (0.1-1.0); BUN/CREATININE RATIO 15; CALCIUM 9.5 MG/DL (8.5-10.1); CARBON DIOXIDE 27 MMOL/L (21-32); CHLORIDE 104 MMOL/L (98-107); CREATININE SERUM 0.95 MG/DL (0.60-1.30); GFR ESTIMATED 88; GLUCOSE 172 MG/DL (70-105); POTASSIUM 3.5 MMOL/L (3.6-5.0); SODIUM 143 MMOL/L (135-145)
[2022-11-10 09:24] LABS: ALBUMIN 3.9 GM/DL (3.2-4.5)
[2022-11-10] MEDS ORDERED: NS 100 ML (IVPB) BAG IV ONE (09:45)
[2022-11-10] MEDS ORDERED: IOHEXOL 350 MG/ML 100 ML (OMNIPAQUE 350) VIAL IV ONE (09:45)
[2022-11-10] MEDS ORDERED: HOLD METFORMIN - RECEIVED CONTRAST 20 ML VIAL IV SCH (09:45)
--- NOTE | 2022-11-10 10:29 | Diagnostic Imaging Report ---
Clinical indications: Patient has numbness feeling involving the left shoulder with some extension the left forearm. Patient's history of stroke. EXAM: Exam: Head CT without IV contrast with sagittal and coronal reformations. Axial CT scan of the cervical spine with sagittal and coronal reformations. Auto Exposure Controls were utilized during the CT exam to meet ALARA standards for radiation dose reduction. Comparison: CT angiogram of head/neck dated 08/17/2022. Findings: Head CT: There is no evidence of acute cerebral infarct, intracranial hemorrhage, or gross mass effect. The brain parenchymal volume appears appropriate for patient's age. There is normal bonilla-white matter distinction. There is no significant midline shift or herniation. There is no evidence of hydrocephalus. The basal cisterns are unremarkable. The skull, extracranial soft tissue, and orbits are unremarkable. The paranasal sinuses are unremarkable. Temporal bones show no significant abnormality. Cervical spine: There is no acute cervical spine fracture or dislocation. Straightening of the cervical spine posture C4 through C7 anterior cervical discectomy fusion. There is solid bony bridging/fusion seen from the C4-C6 level. There is no significant bony bridging/fusion seen at C6-C7 level and may be related to pseudoarthrosis. There is no hardware fracture. There is no osteolysis. There are cervical spine vertebral body spurs and facet arthropathy. C1-C2: There are hypertrophic spurs involving the left odontoid interval anteriorly. There is no significant central canal narrowing. C2-C3: There is grade 1 anterolisthesis C2 on C3. There is left-sided uncinate spur and bilateral facet arthropathy. There is moderate left neural foramen narrowing and mild right neural foramen narrowing. There is no significant bony central canal narrowing. C3-C4: There is moderate left facet arthropathy/hypertrophy and mild right facet arthropathy. There is moderate left neural foramen narrowing and no significant right neural foramen narrowing. There is no significant central canal stenosis. C4-C5: There is left paracentral vertebral body bony prominence which causes mild central canal narrowing. There is moderate right neural foramen narrowing and no significant left neural foramen narrowing. C5-C6: There is mild bilateral neural foramen narrowing due to uncinate spurs. There is no significant bony central canal narrowing. C6-C7: There are bilateral uncinate spurs and posterior vertebral body spurs. There is at least mild bony central canal narrowing. There is moderate left neural foramen narrowing and severe right neural foramen narrowing. There is at least mild to moderate central canal narrowing. C7-T1: There is no significant bony central canal or neural foramen narrowing. IMPRESSION: 1: There is no acute cervical spine fracture or dislocation. 2: There is C4-C7 ACDF. There is no significant bony bridging/fusion seen at C6-C7 level this may be related to pseudoarthrosis. 3: There is cervical spine degenerative disease, as described above. Dictated by: Dictated on workstation # [id number]
[2022-11-10 11:22] VITALS: BP 175/86
[2022-11-10] MEDS ORDERED: CLOPIDOGREL 300 MG TABLET PO ONE ×2 (11:24→11:30)
== END 2022-11-10 11:50 | disposition short-term general hospital (02) ==
LOC: ER FS 08:22
DX: I65.23 Occlusion and stenosis of bilateral carotid arteries (principal); M48.02 Spinal stenosis, cervical region; H53.9 Unspecified visual disturbance; Z86.73 Personal history of transient ischemic attack (TIA), and cerebral infarction without residual deficits
CPT/HCPCS: 36415; 70450; 72125; 80053; 81000; 82550; 83735; 84484; 85025; 93005; 93041